=== PATIENT | male | born 1965 | race Caucasian/White ===

== ENCOUNTER → 2018-06-15 09:14 | Outpatient (BNVA) | payer MEDICARE, SELFPAY | PROVIDERS: PCP Family Medicine; Visit Provider Student in an Organized Health Care Education/Training Program | DX: M75.81 Other shoulder lesions, right shoulder (principal); M75.41 Impingement syndrome of right shoulder | CPT/HCPCS: 99203 ==

== ENCOUNTER 2018-06-16 02:06 | Outpatient (CLI) | payer MEDICARE, SELFPAY ==
--- NOTE | 2018-06-16 08:53 | DI.MRI_ITS ---
SYMPTOM/DIAGNOSIS: PERSIST RT SHOULDER PAIN, ? SLAP TEAR, BICEPS, M25.511 RIGHT SHOULDER MRI: Comparison is made with plain films dated 01/20/18. Proton density and fat suppressed T 2 axial and coronal and T 1 and fat suppressed T 2 sagittal sequences were performed. There is a small focal area of high signal in the distal supraspinatus tendon in the mid portion. There is also increased signal seen extending within fibers of the supraspinatus tendon, consistent with a delamination type tear. The proximal long head of the biceps tendon is not well seen near the labrum. There is also a small amount of high signal within the superior labrum. The biceps tendon appears normal distal to this area and appears normally positioned. The subscapularis, infraspinatus and teres minor tendons appear intact. The marrow signal is normal. There is a small amount of joint fluid as well as a small amount of fluid in the subcoracoid bursa. IMPRESSION: Severe partial tear of the supraspinatus tendon which also shows delamination. Superior labral tear versus degeneration. The biceps labral anchor is not well seen and may also be partially torn.
== END 2018-06-16 02:26 ==
PROVIDERS: PCP Family Medicine; Visit Provider Orthopaedic Surgery
DX: M25.511 Pain in right shoulder (principal); M75.81 Other shoulder lesions, right shoulder; M25.411 Effusion, right shoulder
CPT/HCPCS: 73221

== ENCOUNTER → 2018-07-08 08:01 | Outpatient (BNVA) | payer MEDICARE, SELFPAY ==
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
== END ==
PROVIDERS: PCP Family Medicine; Referring Provider Family Medicine; Visit Provider Student in an Organized Health Care Education/Training Program
DX: M25.511 Pain in right shoulder (principal); M75.101 Unspecified rotator cuff tear or rupture of right shoulder, not specified as traumatic; Z01.818 Encounter for other preprocedural examination
CPT/HCPCS: NC

== ENCOUNTER 2018-07-08 08:48 | Outpatient (CLI) | payer MEDICARE, SELFPAY | END 2018-07-08 09:08 | PROVIDERS: PCP Family Medicine; Visit Provider Student in an Organized Health Care Education/Training Program | DX: S43.431A Superior glenoid labrum lesion of right shoulder, initial encounter (principal); M75.81 Other shoulder lesions, right shoulder; M25.511 Pain in right shoulder; Z01.818 Encounter for other preprocedural examination ==

== ENCOUNTER 2018-07-12 07:10 | Day surgery (SDC) | payer MEDICARE, SELFPAY ==
[2018-07-12] VITALS (10 sets, daily range): BP systolic 101–134; BP diastolic 59–77; PULSE 56–105; RESP 15–27; TEMP 35.8–36.3; O2SAT 93–99
--- NOTE | 2018-07-12 07:23 | W.PM.DSUDISC ---
Discharge Plan Disposition Patient Disposition: HOME Condition: Stable Discharge Details Attending Provider: Daniele Davis Primary Care Provider: Alo Vegas Home Meds and New Rx's Prescriptions: New ibuprofen 600 mg tablet 600 mg PO TID PRNQty: 90 RF: 3 acetaminophen 500 mg capsule 1,000 mg PO Q8H PRN (Reason: pain) Qty: 90 RF: 0 oxycodone 5 mg tablet 5 mg PO Q4H Qty: 18 RF: 0 aspirin 81 mg tablet,delayed release (DR/EC) 81 mg PO BID Qty: 28 RF: 0 Continue tamsulosin 0.4 mg capsule 0.4 mg PO DAILY Qty: 90 RF: 3 omega 5-xqa-lmd-fish oil [Fish Oil] 1,000 mg (120 mg-180 mg) Capsule 2 tab PO DAILY RF: 0 Methotrexate [Xatmep] 2.5 MG/ML solution 1 ml PO weekly RF: 0 folic acid 1 MG tablet 2 mg PO DAILY RF: 0 Discharge Instructions Stand Alone Forms: Ryan Rodriguez w/[employer] Equipment/Supplies: Sling Activity:: In sling except for hygiene Remove Dressings/Wound Care:: 72 hours Shower/Bathe:: 72 hours Diet:: As Tolerated Discharge Orders Discharge Orders: Discharge Order (Routine); Ordered 07/12/18 Ordered By: Daniele Davis DS: Diagnosis Discharge Diagnosis (1) Superior labrum ptnqubfm-il-wubrbgzqk (SLAP) tear of right shoulder: Status: Acute (2) Subacromial impingement of right shoulder: Status: Acute (3) Partial tear of right rotator cuff: Status: Acute
[2018-07-12] MEDS: Lactated Ringers 1,000 ML 80 ML IV ×2 (07:36→12:32)
[2018-07-12] MEDS: Midazolam 2 MG/2 ML VIAL 3 MG IV (09:33)
[2018-07-12] MEDS: Bupivacaine LIPOSOME/PF 133 MG/10 ML VIAL IJ ×2 (09:33→11:18)
[2018-07-12] MEDS: Bupivacaine 0.5% Pres-Free 10 ML VIAL IJ (09:33)
[2018-07-12] MEDS: Normal Saline 10 ML VIAL IJ (11:18)
[2018-07-12] MEDS: Ondansetron 4 MG/2 ML VIAL IVP (12:28)
[2018-07-12] MEDS: Scopolamine 1 MG/3 DAYS PATCH TD (14:21)
[2018-07-12] MEDS: FAMOTIDINE 20 MG/50 ML BAG 100 MG IVPB (14:22)
--- NOTE | 2018-07-13 07:18 | W.PM.OP ---
Date of service: 07/12/18 Time of Service: 11:18 Operative Note DATE OF PROCEDURE: 07/12/18 PRE-OP DIAGNOSIS: Right SLAP tear and partial subscapularis tear PROCEDURE: Extensive debridement of right glenohumeral joint and subacromial space, acromioplasty, subpectoral biceps tenodesis, debridement of partial rotator cuff tear SURGEON: Daniele Davis [employer]: Alondra Sebastian ANESTHESIA: GETA and regional ESTIMATED BLOOD LOSS: 10 PATHOLOGY: none sent COMPLICATIONS: None Patient was transported to: PACU Patient's condition: stable Indications: Chip is a 53-year-old who has had persistent right shoulder pain. He had failed nonoperative treatment options. He had persistent pain and dysfunction and therefore I offered operative intervention. I reviewed the risk of the procedure to include bleeding, infection, pain, stiffness, weakness. Despite these risks, he elected to proceed. Findings: There is extensive tearing of the superior labrum from anterior to posterior. The biceps tendon had signs of tendinitis and partial tearing at its anchor site as well. A subpectoral biceps tenodesis was performed. There was some partial tearing of the upper portion of the subscapularis exposing no more than 2-3 mm of footprint. Significant inflammation throughout both glenohumeral joint and subacromial space. Large anterolateral acromial spur. Procedure Description: Chip was greeted in the preoperative holding area where the correct side was identified and marked. The consent was reviewed with the patient and signed. The history and physical was updated. All questions were answered. He was taken back to the PACU for administration of an intrascalene nerve block. He was then taken to the operating room. The patient was placed into the supine position on the operating room table. A general anesthetic was administered. Tito was then positioned in the beach chair position. All bony prominences were well padded. The head was placed in a foam pumper head in a neutral position. Prophylactic antibiotics in the form of cefazolin were administered. The right arm/shoulder was then prepped with Chloraprep and draped in a standard fashion with stockinette and shoulder drape. A timeout to confirm correct identity, side and site, procedure, allergies, anesthesia, and medical concerns was performed. The arm was placed into a pneumatic leon, [id number]. The shoulder arthroscopy was then performed. The glenohumeral joint was injected with 20 cc of normal saline with good flow back. A standard posterior portal was made and the joint was entered atraumatically with a blunt arthroscope. Once inside we had good visualization of the structures of the glenohumeral joint. An anterior portal was established with spinal needle localization. A 6.5 mm cannula was inserted. A probe was then used to perform a diagnostic arthroscopy. There is noted to be no significant cartilage damage of the glenoid humeral joint. The labrum was torn. The labrum was torn off of the superior glenoid as well as within the labrum itself. The anchor of the biceps was inflamed and partially torn the biceps tendon showed signs of inflammation. There were no loose bodies in the inferior pouch. The superior rotator cuff was attached to the tuberosity and was probed but did not show any signs of tearing. The subscapularis was grossly intact but there was partial tearing at the superior margin of the subscapularis. After debridement of the partial tearing area there is approximately 2-3 mm of footprint exposed over the superior 4-5 mm of the footprint. Using both electrocautery and shaver performed the biceps tenotomy for later tenodesis. I also aggressively debrided the labrum from anterior to posterior. There was significant inflammatory change within the glenohumeral joint and this was debrided both with electrocautery and with a shaver. I also used a shaver to debride the superior glenoid for hopeful scarring of the labrum. The arthroscope was then inserted into the subacromial space. The 6.5 mm cannula was placed lateral to the CA ligament. Given that there was no significant tearing of the rotator cuff I went ahead and release the CA ligament off the anterolateral corner of the acromion. A complete bursectomy is performed anteriorly, posteriorly, and laterally with electrocautery and shaver. This had excellent exposure of the rotator cuff. The bursal side rotator cuff was without any significant tearing that was appreciated. There was a large anterolateral spur. Using a spinal needle a lateral portal was established. This became the viewing portal. A 5.0 mm marcia was then inserted from the posterior portal. The anterolateral corner of the acromion was then resected in plane with the posterior slope of the acromion. The scope equipment was removed from the shoulder. Excess fluid was evacuated. The portal sites were closed with 3-0 Monocryl. The wounds were dressed with Steri-Strips, 4 x 4's, ABDs, Medipore tape. A sling was applied.
== END 2018-07-12 16:42 | disposition home or self-care (01) ==
PROVIDERS: PCP Family Medicine; Visit Provider Student in an Organized Health Care Education/Training Program
PROC: (CPT 23430; 2018-07-12 10:45)
PROC: (CPT 29823; 2018-07-12 10:45)
PROC: (CPT 23130; 2018-07-12 10:45)
DX: S43.431A Superior glenoid labrum lesion of right shoulder, initial encounter (principal); S46.011A Strain of muscle(s) and tendon(s) of the rotator cuff of right shoulder, initial encounter; M75.21 Bicipital tendinitis, right shoulder; M19.011 Primary osteoarthritis, right shoulder; X58.XXXA Exposure to other specified factors, initial encounter
CPT/HCPCS: 29823; 29826; 29828; 76942; J0131; J0690; J1100; J1885; J2250; J2405; L3670

== ENCOUNTER → 2018-07-12 07:46 | Outpatient (BNVA) | payer MEDICARE, SELFPAY | PROVIDERS: PCP Family Medicine; Referring Provider Family Medicine; Visit Provider Student in an Organized Health Care Education/Training Program | DX: R69 Illness, unspecified (principal) ==

== ENCOUNTER → 2018-07-25 10:20 | Outpatient (BNVA) | payer MEDICARE, SELFPAY | PROVIDERS: PCP Family Medicine; Referring Provider Family Medicine; Visit Provider Student in an Organized Health Care Education/Training Program | DX: M75.111 Incomplete rotator cuff tear or rupture of right shoulder, not specified as traumatic; M75.41 Impingement syndrome of right shoulder; Z47.89 Encounter for other orthopedic aftercare ==

== ENCOUNTER → 2018-08-22 09:19 | Outpatient (BNVA) | payer MEDICARE, SELFPAY | PROVIDERS: PCP Family Medicine; Referring Provider Family Medicine; Visit Provider Student in an Organized Health Care Education/Training Program | DX: Z47.89 Encounter for other orthopedic aftercare (principal); M75.111 Incomplete rotator cuff tear or rupture of right shoulder, not specified as traumatic ==

== ENCOUNTER → 2018-09-19 09:52 | Outpatient (BNVA) | payer MEDICARE, SELFPAY | PROVIDERS: PCP Family Medicine; Referring Provider Family Medicine; Visit Provider Student in an Organized Health Care Education/Training Program | DX: Z47.89 Encounter for other orthopedic aftercare (principal); G56.01 Carpal tunnel syndrome, right upper limb; S43.431D Superior glenoid labrum lesion of right shoulder, subsequent encounter; X58.XXXD Exposure to other specified factors, subsequent encounter | CPT/HCPCS: L3908 ==

== ENCOUNTER → 2018-11-02 09:29 | Outpatient (BNVA) | payer MEDICARE, SELFPAY | PROVIDERS: PCP Family Medicine; Referring Provider Family Medicine; Visit Provider Student in an Organized Health Care Education/Training Program | DX: G56.01 Carpal tunnel syndrome, right upper limb (principal) | CPT/HCPCS: 99213 ==

== ENCOUNTER 2018-12-06 12:11 | Day surgery (SDC) | payer MEDICARE, SELFPAY ==
[2018-12-06 12:16] VITALS: BP 105/66; PULSE 55; RESP 16; TEMP 35.8; O2SAT 96
[2018-12-06] MEDS: Lactated Ringers 1,000 ML 80 ML IV (12:37)
--- NOTE | 2018-12-06 13:47 | W.PM.DSUDISC ---
Discharge Plan Disposition Patient Disposition: HOME Condition: Good Discharge Details Reason For Visit: R ECTR Attending Provider: Daniele Davis Primary Care Provider: Alo Vegas Home Meds and New Rx's Prescriptions: Continued tamsulosin 0.4 mg capsule 0.4 mg PO DAILY Qty: 90 RF: 3 gabapentin 300 mg capsule 300 mg PO TID Qty: 90 RF: 0 ibuprofen 600 mg tablet 600 mg PO TID PRNQty: 90 RF: 3 acetaminophen 500 mg capsule 1,000 mg PO Q8H PRN (Reason: pain) Qty: 90 RF: 0 Discharge Instructions Stand Alone Forms: Ryan Lopez Tunnel Release Referrals: Daniele Davis MD [ [facility] STAFF PHYSICIAN] - Activity:: Elevate Remove Dressings/Wound Care:: 48 hours Shower/Bathe:: 48 hours Diet:: As Tolerated Discharge Orders Discharge Orders: Discharge Order (Routine); Ordered 12/06/18 Ordered By: Daniele Davis DS: Diagnosis Discharge Diagnosis (1) Right carpal tunnel syndrome: Status: Chronic
[2018-12-06] MEDS: Lidocaine 1% Multi-Dose 50 ML VIAL (15:41)
[2018-12-06 16:05] VITALS: BP 113/78; PULSE 60; RESP 16; TEMP 34.8; O2SAT 95
[2018-12-06] MEDS: Acetaminophen 325 MG TAB 650 MG PO (16:08)
--- NOTE | 2018-12-06 21:53 | ROE_ITS ---
Date of service: 12/06/18 Time of Service: 16:52 Operative Note DATE OF PROCEDURE: 12/06/18 PRE-OP DIAGNOSIS: Right Carpal Tunnel Syndrome POST-OP DIAGNOSIS: same PROCEDURE: Right Endoscopic Carpal Tunnel Release SURGEON: Daniele Davis ANESTHESIA: MAC ESTIMATED BLOOD LOSS: 0 PATHOLOGY: none sent TOURNIQUET TIME: 7 COMPLICATIONS: None Patient was transported to: same day Patient's condition: stable Indications: I have seen Chip in clinic for symptoms of carpal tunnel syndrome. The numbness, tingling, and pain limited function. Clinical exam findings confirmed the diagnosis of carpal tunnel syndrome. Nonoperative measures such as bracing, time, activity modifications had been tried but disability and pain persisted. I discussed carpal tunnel release with the patient. I reviewed the risks of the procedure to include, but not limited to, bleeding, infection, pain, stiffness, incomplete release, damage to nerves or vessels, persistent numbness, recurrence. Despite these risks, the patient elected to proceed. Findings: There was tightened carpal tunnel. This was dilated and released successfully with the endoscopic with increased space within the tunnel. The antebrachial fascia was released proximally freeing the median nerve at the wrist. Procedure Description: Chip was greeted in the preoperative holding area where the correct side was identified and marked. The consent was reviewed with the patient and signed. The history and physical was updated. All questions were answered. He was taken back to the operating room. The patient was placed into the supine position on the operating room table with the right arm on an arm board. A nonsterile tourniquet was placed high onto the arm. All bony prominences were well padded. Prophylactic antibiotics in the form of cefazolin were administered. The right arm was then prepped with Chloraprep and draped in a standard fashion with stockinette and extremity drape. A timeout to confirm correct identity, side and site, procedure, allergies, anesthesia, and medical concerns was performed. The surgical site was marked in the volar wrist creases in line with the radial border of the fourth ray. This area was anesthetized with approximately 6cc of 1% Lidocaine. The limb was then exsanguinated with an Esmarch. The skin was incised with a 15 blade, approximately 1cm. The skin only was cut and the deeper tissue was dissected bluntly with a tenotomy scissor, avoiding passing ne rve and venous structures. The fascia was penetrated and opened bluntly. A two-prong skin hook was placed under this proximal fascial edge. A series of hamate finders were used to identify and dilate the carpal tunnel. Synovial elevator was used to free synovial attachments to the underside of the transverse carpal ligament. My thumb was kept in the palm to amanda the distal extent of the carpal tunnel and correctly position the hand. The Microaire endoscope was inserted without difficulty and without resistance. Excellent visualization showed horizontally running fibers of the transverse carpal ligament (TCL). The distal extent of the TCL was visualized and the end of the scope palpated with the thumb. The blade was elevated and withdrawn from distal to proximal. The TCL was split into two flaps. The endoscope was reinserted to confirm complete release and any remnant ligament was incised. The scope was withdrawn and the proximal aspect of the carpal tunnel was grossly inspected and appeared release with the median nerve visible. The antebrachial fascia at the level of the wrist was then freed from the overlying skin and then the underlying median nerve with blunt dissection. This was transected longitudinally for about 3cm proximal to the wrist incision. The wound was then irrigated with easy flow of irrigant distally and proximally. The incision was closed with a single 4-0 Nylon suture. The wound was dressed with Xeroform, Gauze, Kerlix and Adolfo. The tourniquet was deflated with the initial dressing and held with some pressure. Blood flow returned easily to all digits with capillary refill less than 2 seconds. The patient tolerated the procedure well and was returned to the Same Day Surgery area in a stable condition suffering no known complication.
== END 2018-12-06 16:28 | disposition home or self-care (01) ==
PROVIDERS: PCP Family Medicine; Visit Provider Student in an Organized Health Care Education/Training Program
PROC: 01N54ZZ Release Median Nerve, Percutaneous Endoscopic Approach (ICD-10-PCS; CPT 29848; principal; 2018-12-06 14:45)
DX: G56.01 Carpal tunnel syndrome, right upper limb (principal)
CPT/HCPCS: 29848; J0690; L3650

== ENCOUNTER → 2018-12-16 10:27 | Outpatient (BNVA) | payer MEDICARE, SELFPAY | PROVIDERS: PCP Family Medicine; Referring Provider Family Medicine; Visit Provider Student in an Organized Health Care Education/Training Program | DX: G56.01 Carpal tunnel syndrome, right upper limb (principal); Z47.89 Encounter for other orthopedic aftercare | CPT/HCPCS: L3908 ==

== ENCOUNTER → 2019-01-27 08:15 | Outpatient (BNVA) | payer MEDICARE, SELFPAY | PROVIDERS: PCP Family Medicine; Referring Provider Family Medicine; Visit Provider Student in an Organized Health Care Education/Training Program | DX: Z47.89 Encounter for other orthopedic aftercare (principal); G56.01 Carpal tunnel syndrome, right upper limb ==

== ENCOUNTER → 2019-05-18 14:08 | Outpatient (BNVA) | payer MEDICARE, SELFPAY | PROVIDERS: PCP Family Medicine; Referring Provider Family Medicine; Visit Provider Nurse Practitioner Adult Health | DX: G56.03 Carpal tunnel syndrome, bilateral upper limbs (principal) | CPT/HCPCS: 95909; 99203; 99214 ==

== ENCOUNTER → 2019-06-19 13:28 | Outpatient (BNVA) | payer MEDICARE, SELFPAY | PROVIDERS: PCP Family Medicine; Referring Provider Family Medicine; Visit Provider Student in an Organized Health Care Education/Training Program | DX: G56.02 Carpal tunnel syndrome, left upper limb (principal) | CPT/HCPCS: 99214 ==

== ENCOUNTER 2019-06-28 10:27 | Day surgery (SDC) | payer MEDICARE, SELFPAY ==
[2019-06-28 10:52] VITALS: BP 114/69; PULSE 59; RESP 16; TEMP 36.3; O2SAT 98
[2019-06-28 10:58] VITALS: BP 114/69; PULSE 59; RESP 16; TEMP 36.3; O2SAT 98
[2019-06-28] MEDS: Lactated Ringers 1,000 ML 80 ML IV (11:15)
--- NOTE | 2019-06-28 12:08 | PDOC.DSDIS_ITS ---
Discharge Plan Disposition Patient Disposition: HOME Condition: Good Discharge Details Reason For Visit: Left Carpal Tunnel Syndrome Attending Provider: Daniele Davis Primary Care Provider: Alo Vegas Home Meds and New Rx's Prescriptions: New hydrocodone-acetaminophen 5-325 mg tablet 1 tab PO Q6H PRN PRN (Reason: pain) Qty: 4 RF: 0 Continued saw palmetto 160 mg capsule 160 mg PO DAILY RF: 0 acetaminophen 500 mg capsule 1,000 mg PO Q8H PRN (Reason: pain) Qty: 90 RF: 0 ibuprofen 600 mg tablet 600 mg PO TID PRNQty: 60 RF: 3 Discharge Instructions Stand Alone Forms: Ryan Lopez Tunnel Release Referrals: Daniele Davis MD [ [facility] STAFF PHYSICIAN] - Equipment/Supplies: Sling Activity:: Elevate Remove Dressings/Wound Care:: 48 hours Shower/Bathe:: 48 hours Diet:: As Tolerated Discharge Orders Discharge Orders: Discharge Order (Routine); Ordered 06/28/19 Ordered By: Daniele Davis DS: Diagnosis Discharge Diagnosis (1) Left carpal tunnel syndrome: Status: Chronic
[2019-06-28] MEDS: ceFAZolin 2 GM/50 ML BAG IVPB (12:27)
[2019-06-28] MEDS: Sodium Bicarbonate 50 MEQ/50 ML VIAL (12:33)
[2019-06-28] MEDS: Lidocaine 1% Multi-Dose 50 ML VIAL (12:33)
[2019-06-28 13:30] VITALS: BP 117/80; PULSE 57; RESP 16; TEMP 36.4; O2SAT 97
[2019-06-28] MEDS: HYDROcodone 5/Acetaminophen 325 TAB PO (13:36)
--- NOTE | 2019-06-30 05:38 | W.PM.OP ---
Date of service: 06/29/19 Time of Service: 12:38 Operative Note Operative Note DATE OF PROCEDURE: 06/29/19 PRE-OP DIAGNOSIS: Left carpal tunnel syndrome POST-OP DIAGNOSIS: same PROCEDURE: Left Endoscopic Carpal Tunnel Release SURGEON: Daniele Davis ANESTHESIA: GETRebel ESTIMATED BLOOD LOSS: 0 PATHOLOGY: none sent TOURNIQUET TIME: 10 COMPLICATIONS: None Patient was transported to: same day Patient's condition: stable Indications: I have seen Chip in clinic for symptoms of carpal tunnel syndrome. The numbness, tingling, and pain limited function. Clinical exam findings with nerve conduction tests confirmed the diagnosis of carpal tunnel syndrome. Nonoperative measures such as bracing, time, activity modifications had been tried but disability and pain persisted. I discussed carpal tunnel release with the patient. I reviewed the risks of the procedure to include, but not limited to, bleeding, infection, pain, stiffness, incomplete release, damage to nerves or vessels, persistent numbness, recurrence. Despite these risks, the patient elected to proceed. Findings: There was tightened carpal tunnel. Significant amounts of thickened synovial fluid was encountered in the carpal tunnel. This was dilated and released successfully with the endoscopic with increased space within the tunnel. The antebrachial fascia was released proximally freeing the median nerve at the wrist. Procedure Description: Chip was greeted in the preoperative holding area where the correct side was identified and marked. The consent was reviewed with the patient and signed. The history and physical was updated. All questions were answered. Chip was taken back to the operating room. The patient was placed into the supine position on the operating room table with the left arm on an arm board. A nonsterile tourniquet was placed high onto the arm. All bony prominences were well padded. Prophylactic antibiotics in the form of cefazolin were administered. The right arm was then prepped with Chloraprep and draped in a standard fashion with stockinette and extremity drape. A timeout to confirm correct identity, side and site, procedure, allergies, anesthesia, and medical concerns was performed. The surgical site was marked in the volar wrist creases in line with the radial border of the fourth ray. This area was anesthetized with approximately 6cc of 1% Lidocaine. The limb was then exsanguinated with an Esmarch. The skin was incised with a 15 blade, approximately 1cm. The skin only was cut and the deeper tissue was dissected bluntly with a tenotomy scissor, avoiding passing nerve and venous structures. The fascia was penetrated and opened bluntly. A two-prong skin hook was placed under this proximal fascial edge. A series of hamate finders were used to identify and dilate the carpal tunnel. Synovial elevator was used to free synovial attachments to the underside of the transverse carpal ligament. During this process, there was significant amounts of synovial fluid encountered. It was quite thickened, sticking to the instruments. My thumb was kept in the palm to amanda the distal extent of the carpal tunnel and correctly position the hand. The [employer] endoscope was inserted without difficulty and without resistance. He had to be passed multiple times due to this synovial fluid sticking to the end of the scope. Once this was evacuated, excellent visualization showed horizontally running fibers of the transverse carpal ligament (TCL) underneath the thickened synovium. The distal extent of the TCL was visualized and the end of the scope palpated with the thumb. The blade was elevated and withdrawn from distal to proximal. The TCL was split into two flaps. The endoscope was reinserted to confirm complete release and any remnant ligament was incised. The scope was withdrawn and the proximal aspect of the carpal tunnel was grossly inspected and appeared release with the median nerve visible. The antebrachial fascia at the level of the wrist was then freed from the overlying skin and then the underlying median nerve with blunt dissection. This was transected longitudinally for about 3cm proximal to the wrist incision. The wound was then irrigated with easy flow of irrigant distally and proximally. The incision was closed with a single 4-0 Nylon suture. The wound was dressed with Xeroform, Gauze, Kerlix and Adolfo. The tourniquet was deflated with the initial dressing and held with some pressure. Blood flow returned easily to all digits with capillary refill less than 2 seconds. The patient tolerated the procedure well and was returned to the Same Day Surgery area in a stable condition suffering no known complication.
== END 2019-06-28 14:30 | disposition home or self-care (01) ==
PROVIDERS: PCP Family Medicine; Visit Provider Student in an Organized Health Care Education/Training Program
PROC: 01N54ZZ Release Median Nerve, Percutaneous Endoscopic Approach (ICD-10-PCS; CPT 29848; principal; 2019-06-28 12:45)
DX: G56.01 Carpal tunnel syndrome, right upper limb (principal)
CPT/HCPCS: 29848; J0690; J1100; J1200; J1885; J2405; L3650

== ENCOUNTER → 2019-07-10 13:08 | Outpatient (BNVA) | payer MEDICARE, SELFPAY | PROVIDERS: PCP Family Medicine; Referring Provider Family Medicine; Visit Provider Student in an Organized Health Care Education/Training Program | DX: Z47.89 Encounter for other orthopedic aftercare (principal); G56.02 Carpal tunnel syndrome, left upper limb ==